=== PATIENT | male | born 1980 | race Caucasian/White ===

== ENCOUNTER 2016-05-17 18:13 | Emergency (ER) | payer BC ==
[2016-05-17 18:39] LABS: BASO % 0.3 % (0.2-1.2); EOS # 0.3 10_X3_uL (0.0-0.5); EOS % 3.5 % (0.8-7.0); GRAN # 4.4 10_X3_uL (1.8-5.4); GRAN % 49.2 % (34.0-67.9); HEMATOCRIT 42.3 % (40-51); HEMOGLOBIN 15.3 g/dL (13.7-17.5); LYMPH # 3.5 10_X3_uL (1.3-3.6); LYMPH % 39.7 % (21.8-53.1); MEAN CORPUSCULAR HEMOGLOBIN 30.7 pg (27.0-33.0); MEAN CORPUSCULAR HGB CONC 36.2 g/dL (32.0-36.0); MEAN CORPUSCULAR VOLUME 84.8 fL (79-92); MEAN PLATELET VOLUME 10.6 fl (7.5-11.5); MONO # 0.7 10_X3_uL (0.3-0.8); MONO % 7.3 % (5.3-12.2); PLATELET COUNT 307 x10_3/uL (163-337); RED BLOOD COUNT 4.99 x10_6/uL (4.6-6.1); RED CELL DISTRIBUTION WIDTH 12.3 % (11.6-14.4); WHITE BLOOD COUNT 8.9 x10_3/uL (4.2-9.1)
[2016-05-17 18:48] LABS: CALCIUM 8.9 mg/dL (8.7-10.7); CARBON DIOXIDE 28 mmol/L (21-32); CREATININE 0.9 mg/dL (0.6-1.3); GLUCOSE,RANDOM 95 mg/dL (70-99); POTASSIUM 3.6 mmol/L (3.5-5.1); SODIUM 140 mmol/L (136-145)
[2016-05-17 18:49] LABS: BLOOD UREA NITROGEN 7 mg/dL (7-18)
[2016-05-17 18:52] LABS: TROP-I < 0.30 NG/ML (0.00-0.30)
[2016-05-17 19:01] LABS: THYROID STIMULATING HORMONE 1.13 uIU/mL (0.34-4.82)
== END 2016-05-17 19:08 | disposition home or self-care (01) ==
LOC: ER 18:13
PROVIDERS: General Practice
DX: R00.2 Palpitations (principal)
CPT/HCPCS: 36415; 71010; 80048; 84443; 85025; 93005; 99285-25